=== PATIENT | female | born 1945 | race Caucasian/White ===

== ENCOUNTER 2017-04-12 02:18 | Inpatient (IN) | payer MEDICARE ==
[~2017-04-12] VITALS: Ht 170.2 cm; Wt 82.6 kg
[~2017-04-12 02:18] MED LIST: ALBU90AE INH; ALPR-475 PO; CETI10CA PO; CHOL500014 PO; DESO60CR12 TP; DICL100G8 TP; LEVO75TA PO; MELO-190 PO; MONT10TA6 PO; NITR0.4T SL; SUMA25TA4 PO; TIZA4TAB PO; TRAM50TA2 PO; TRIA10.8 NAS; VITA1CAP5 PO
[2017-04-12] MEDS ORDERED: SODIUM CHLORIDE 0.9% 1,000 ML IV ONE (02:24)
[2017-04-12] MEDS ORDERED: SODIUM CHLORIDE 0.9% 1,000ML IVBOLUS ONE (02:30)
[2017-04-12] MEDS ORDERED: SODIUM CHLORIDE FLUSH 10ML SYR IVF ONE (02:30)
[2017-04-12] MEDS ORDERED: CIPROFLOXACIN/PMX 400MG/200ML 200 ML IV ONE (02:30)
[2017-04-12] MEDS ORDERED: METOCLOPRAMIDE 5 MG/ML, 2ML IVPush ONE (03:00)
[2017-04-12] MEDS ORDERED: METOCLOPRAMIDE 5 MG/ML, 2ML ONE (03:26)
[2017-04-12] MEDS ORDERED: CIPROFLOXACIN/PMX 400MG/200ML 200 ML ONE (03:26)
[2017-04-12 03:33] LABS: BLOOD UREA NITROGEN 9 mg/dL (7-18)
[2017-04-12 03:34] LABS: HEMATOCRIT 37.5 % (34.6-47.8); HEMOGLOBIN 12.5 g/dL (11.7-16.4); WHITE BLOOD COUNT 5.5 x10^3/uL (3.4-10)
[2017-04-12] MEDS: CIPROFLOXACIN/PMX 400MG/200ML 200 ML IV SCH ×2 (04:30→15:59)
[2017-04-12] MEDS ORDERED: ZOLPIDEM 5MG TABLET PO PRN (04:30)
[2017-04-12] MEDS ORDERED: DOCUSATE 100 MG CAPSULE PO PRN (04:30)
[2017-04-12] MEDS ORDERED: SUMATRIPTAN 25 MG TABLET PO PRN (04:30)
[2017-04-12] MEDS ORDERED: BISACODYL 10 MG SUPP PR PRN (04:30)
[2017-04-12] MEDS ORDERED: POLYETHYLENE GLYCOL 17 GM PACKET PO PRN (04:30)
[2017-04-12] MEDS ORDERED: ACETAMINOPHEN 325 MG TABLET PO PRN (04:30)
[2017-04-12] MEDS: NS + 20MEQ KCL 1,000 ML IV SCH ×2 (06:41→14:30)
[2017-04-12] MEDS: LEVOTHYROXINE 75 MCG TABLET PO SCH (06:51)
[2017-04-12] MEDS: ENOXAPARIN 40 MG/0.4 ML SQ SCH (06:51)
[2017-04-12] MEDS ORDERED: NITROGLYCERIN 0.4 MG BOTTLE (25 TABS) SL PRN (09:00)
[2017-04-12] MEDS ORDERED: NITROGLYCERIN 0.4 MG BOTTLE (25 TABS) SL SCH (09:00)
[2017-04-12] MEDS: TRIAMCINOLONE ACETONIDE NAS SCH ×2 (09:00→21:00)
[2017-04-12] MEDS ORDERED: POTASSIUM CHLORIDE 20 MEQ TAB.ER.PRT PO ONE ×2 (10:00→15:00)
[2017-04-12] MEDS: METOCLOPRAMIDE 5 MG/ML, 2ML IVPush PRN ×2 (10:28→18:02)
[2017-04-12] MEDS ORDERED: ONDANSETRON 2MG/ML, 2ML IVPush PRN (10:30)
[2017-04-12] MEDS: MELOXICAM 15 MG TABLET PO SCH ×2 (10:52→21:48)
[2017-04-12 11:46] LABS: BLOOD UREA NITROGEN 9 mg/dL (7-18)
[2017-04-12 14:19] VITALS: BP 114/75
[2017-04-12 18:32] VITALS: BP 138/81
[2017-04-12] MEDS: MONTELUKAST 10 MG TABLET PO SCH (21:00)
[2017-04-12] MEDS: CHOLECALCIFEROL 1,000 UNIT TABLET PO SCH (21:48)
[2017-04-12] MEDS: TIZANIDINE 4MG TABLET PO PRN (22:41)
[2017-04-12] MEDS: CETIRIZINE 10 MG TABLET PO SCH (22:41)
[2017-04-13 03:06] VITALS: BP 92/55
[2017-04-13] MEDS: CIPROFLOXACIN/PMX 400MG/200ML 200 ML IV SCH ×2 (04:36→17:20)
[2017-04-13 05:33] LABS: HEMATOCRIT 32.6 % (34.6-47.8); HEMOGLOBIN 10.9 g/dL (11.7-16.4); WHITE BLOOD COUNT 4.2 x10^3/uL (3.4-10)
[2017-04-13 05:46] LABS: BLOOD UREA NITROGEN 9 mg/dL (7-18)
[2017-04-13 05:51] LABS: ASPARTATE AMINO TRANSFERASE 10 U/L (15-37)
[2017-04-13] MEDS: ENOXAPARIN 40 MG/0.4 ML SQ SCH (06:48)
[2017-04-13] MEDS: LEVOTHYROXINE 75 MCG TABLET PO SCH (06:48)
[2017-04-13 06:54] VITALS: BP 113/72
[2017-04-13] MEDS: TRIAMCINOLONE ACETONIDE NAS SCH ×2 (09:00→21:00)
[2017-04-13] MEDS: MELOXICAM 15 MG TABLET PO SCH ×2 (10:24→21:24)
[2017-04-13 13:33] VITALS: BP 123/77
[2017-04-13 19:34] VITALS: BP 119/73
[2017-04-13] MEDS: MONTELUKAST 10 MG TABLET PO SCH (21:24)
[2017-04-13] MEDS: CHOLECALCIFEROL 1,000 UNIT TABLET PO SCH (21:25)
[2017-04-13] MEDS: CETIRIZINE 10 MG TABLET PO SCH (21:26)
[2017-04-13] MEDS: TIZANIDINE 4MG TABLET PO PRN (23:02)
[2017-04-14 02:10] VITALS: BP 99/52
[2017-04-14] MEDS: CIPROFLOXACIN/PMX 400MG/200ML 200 ML IV SCH ×2 (04:48→15:52)
[2017-04-14] MEDS: ENOXAPARIN 40 MG/0.4 ML SQ SCH (06:33)
[2017-04-14] MEDS: LEVOTHYROXINE 75 MCG TABLET PO SCH (06:33)
[2017-04-14] MEDS: MELOXICAM 15 MG TABLET PO SCH ×2 (07:31→21:45)
[2017-04-14] MEDS: TRIAMCINOLONE ACETONIDE NAS SCH ×2 (07:32→21:00)
[2017-04-14 07:37] VITALS: BP 126/75
[2017-04-14 12:40] VITALS: BP 108/71
[2017-04-14] MEDS ORDERED: CIPR500T87 PO (12:40)
[2017-04-14] MEDS ORDERED: LACT1CAP24 PO (12:42)
[2017-04-14 18:28] VITALS: BP 154/84
[2017-04-14] MEDS: MONTELUKAST 10 MG TABLET PO SCH (21:45)
[2017-04-14] MEDS: CHOLECALCIFEROL 1,000 UNIT TABLET PO SCH (21:46)
[2017-04-14] MEDS: CETIRIZINE 10 MG TABLET PO SCH (21:47)
[2017-04-15 03:00] VITALS: BP 122/71
[2017-04-15] MEDS: CIPROFLOXACIN/PMX 400MG/200ML 200 ML IV SCH (04:16)
[2017-04-15] MEDS: LEVOTHYROXINE 75 MCG TABLET PO SCH (06:25)
[2017-04-15] MEDS: ENOXAPARIN 40 MG/0.4 ML SQ SCH (06:26)
[2017-04-15 06:41] VITALS: BP 129/72
[2017-04-15] MEDS: MELOXICAM 15 MG TABLET PO SCH (08:15)
[2017-04-15] MEDS: TRIAMCINOLONE ACETONIDE NAS SCH (08:15)
[2017-04-15 15:55] VITALS: BP 142/89
== END 2017-04-15 16:32 | disposition home or self-care (01) | DRG 871 ==
LOC: ED 02:31 → EDIP 03:20 → 4NOR 04:40
DX: A41.51 Sepsis due to Escherichia coli [E. coli] (principal); E43 Unspecified severe protein-calorie malnutrition; N10 Acute pyelonephritis; I20.1 Angina pectoris with documented spasm; E87.6 Hypokalemia; E03.9 Hypothyroidism, unspecified; E86.0 Dehydration; L53.9 Erythematous condition, unspecified; M19.90 Unspecified osteoarthritis, unspecified site; Z96.651 Presence of right artificial knee joint; N30.90 Cystitis, unspecified without hematuria; Z80.1 Family history of malignant neoplasm of trachea, bronchus and lung; Z90.49 Acquired absence of other specified parts of digestive tract; Z88.5 Allergy status to narcotic agent; Z88.0 Allergy status to penicillin; Z88.2 Allergy status to sulfonamides; Z88.7 Allergy status to serum and vaccine; Z88.8 Allergy status to other drugs, medicaments and biological substances; Z88.6 Allergy status to analgesic agent; Z88.1 Allergy status to other antibiotic agents; Z88.3 Allergy status to other anti-infective agents; Z91.041 Radiographic dye allergy status
CPT/HCPCS: 36415; 71010; 76770; 80048; 80053; 81001; 82040; 83605; 83690; 83735; 84145; 84484; 85025; 87040; 87077; 87086; 87186; 93005; 96365; 96366; 96375; J0744; J1650; J3480; J2765; J7030

== ENCOUNTER → 2017-05-28 | Outpatient (CLI) | payer MEDICARE ==
[~2017-05-28] MED LIST changes: -CHOL500014 PO; +CHOL500045 PO; +CIPR500T87 PO; +DICL100G19 TP; -DICL100G8 TP; +FENTANYL PF 100 MCG/2ML ONE; +FLUMAZENIL 0.1 MG/1 ML, 5ML ONE; +LACT1CAP24 PO; -MELO-190 PO; +MELO7.5T31 PO; +MIDAZOLAM 1 MG/ML, 5ML ONE; +NALOXONE 1 MG/ML, 2ML ONE
== END | disposition home or self-care (01) ==
LOC: RAD 11:56
PROVIDERS: ATTEND Pain Medicine Interventional Pain Medicine
DX: M51.36 Other intervertebral disc degeneration, lumbar region (principal); M51.26 Other intervertebral disc displacement, lumbar region; M43.17 Spondylolisthesis, lumbosacral region; M48.07 Spinal stenosis, lumbosacral region; M47.896 Other spondylosis, lumbar region; M25.78 Osteophyte, vertebrae
CPT/HCPCS: 72148; 99156; 99157; J2250; J3010; J2310

== ENCOUNTER → 2018-02-07 | Outpatient (CLI) | payer MEDICARE ==
[~2018-02-07] MED LIST changes: -FLUMAZENIL 0.1 MG/1 ML, 5ML ONE; -NALOXONE 1 MG/ML, 2ML ONE
== END | disposition home or self-care (01) ==
LOC: RAD 09:22
PROVIDERS: ATTEND Orthopaedic Surgery Sports Medicine
DX: M75.51 Bursitis of right shoulder (principal); M62.511 Muscle wasting and atrophy, not elsewhere classified, right shoulder; M19.011 Primary osteoarthritis, right shoulder; M25.551 Pain in right hip
CPT/HCPCS: 73221; 73721; 99156; 99157; J2250; J3010

== ENCOUNTER → 2018-04-24 | Outpatient (CLI) | payer MEDICARE ==
[~2018-04-24] MED LIST changes: +FLUMAZENIL 0.1 MG/1 ML, 5ML ONE; +NALOXONE 1 MG/ML, 2ML ONE
== END | disposition home or self-care (01) ==
LOC: RAD 07:24
PROVIDERS: ATTEND Neurological Surgery
DX: M51.36 Other intervertebral disc degeneration, lumbar region (principal); M48.061 Spinal stenosis, lumbar region without neurogenic claudication; M41.9 Scoliosis, unspecified
CPT/HCPCS: 72110; 72148; 99156; 99157; J2250; J3010; J2310

== ENCOUNTER → 2018-11-12 | Outpatient (CLI) | payer MEDICARE ==
[~2018-11-12] MED LIST changes: -FENTANYL PF 100 MCG/2ML ONE; -FLUMAZENIL 0.1 MG/1 ML, 5ML ONE; -MIDAZOLAM 1 MG/ML, 5ML ONE; -NALOXONE 1 MG/ML, 2ML ONE; +ROSU20TA PO
[2018-11-12 12:53] LABS: BASOPHILS # (AUTO) 0.03 x10^3/uL (0-0.1); BASOPHILS % (AUTO) 1 % (0-1); EOSINOPHILS # (AUTO) 0.21 x10^3/uL (0-0.4); EOSINOPHILS % (AUTO) 4 % (1-7); HCT (SEDRATE) 39.8 % (34.6-47.8); LYMPHOCYTES # (AUTO) 0.96 x10^3/uL (1-3.4); LYMPHOCYTES % (AUTO) 17 % (22-44); MD NO; MEAN CORPUSCULAR HEMOGLOBIN 28.6 pg (27.0-34.8); MEAN CORPUSCULAR HGB CONC 32.7 g/dL (32.4-35.8); MEAN CORPUSCULAR VOLUME 87.3 fL (80-100); MEAN PLATELET VOLUME 9.6 fL (7.4-10.4); MONOCYTES # (AUTO) 0.54 x10^3/uL (0.2-0.8); MONOCYTES % (AUTO) 9 % (2-9); NEUTROPHILS # (AUTO) 3.99 x10^3/uL (1.8-6.8); NEUTROPHILS % (AUTO) 70 % (42-75); PLATELET COUNT 256 x10^3/uL (130-400); RED BLOOD COUNT 4.63 x10^6/uL (3.82-5.3); RED CELL DISTRIBUTION WIDTH 13.9 % (9.6-15.2)
[2018-11-12 12:55] LABS: INTERNATIONAL NORMALIZED RATIO 0.95 (0.93-1.1)
[2018-11-12 13:13] LABS: ANION GAP 5 mmol/L (5-15); CALCIUM 9.1 mg/dL (8.5-10.1); CHLORIDE 108 mmol/L (98-107)
[2018-11-12 13:17] LABS: CHOL/HDL RATIO 1.9; CHOLESTEROL, TOTAL 177 mg/dL (140-239); CREATININE 1.08 mg/dL (0.55-1.02); HDL CHOL % 54 % (28-40); HDL CHOLESTEROL (DIRECT) 95 mg/dL (40-60); LDL CHOLESTEROL,CALCULATED 68 mg/dL (54-169); LDL/HDL RATIO 0.7 (0.5-3.0); TRIGLYCERIDES 71 mg/dL (50-200); VLDL CHOLESTEROL 14 mg/dL (0-25)
== END | disposition home or self-care (01) ==
LOC: CFH 11:49
PROVIDERS: ATTEND Internal Medicine
DX: M25.50 Pain in unspecified joint (principal); I10 Essential (primary) hypertension; E78.2 Mixed hyperlipidemia; I25.10 Atherosclerotic heart disease of native coronary artery without angina pectoris
CPT/HCPCS: 36415; 80048; 80061; 85025; 85610; 85651; 85730; 86200; 86430

== ENCOUNTER 2018-11-13 11:49 | Day surgery (SDC) | payer MEDICARE ==
[~2018-11-13 11:49] MED LIST changes: -ROSU20TA PO
[2018-11-13] MEDS ORDERED: MIDAZOLAM 1 MG/ML, 5ML ONE (13:57)
[2018-11-13] MEDS ORDERED: DIPHENHYDRAMINE 50 MG/ML, 1ML ONE (13:57)
[2018-11-13] MEDS ORDERED: LIDOCAINE 2%, 20ML ONE (13:57)
[2018-11-13] MEDS ORDERED: FENTANYL PF 100 MCG/2ML ONE (13:57)
[2018-11-13] MEDS ORDERED: VERAPAMIL 2.5 MG/ML, 2ML ONE (14:27)
[2018-11-13] MEDS ORDERED: HEPARIN 1,000 UNITS/ML, 10ML ONE (14:32)
[2018-11-13] MEDS ORDERED: SODIUM CHLORIDE 0.9% 1,000 ML IV SCH (14:54)
[2018-11-13] MEDS ORDERED: ROSU20TA PO (15:15)
[2018-11-13] MEDS ORDERED: PLEASE ENTER HEIGHT AND WEIGHT MC SCH (15:30)
== END 2018-11-13 18:25 | disposition home or self-care (01) ==
LOC: CACL 11:49
PROVIDERS: ATTEND Internal Medicine Cardiovascular Disease
DX: I25.118 Atherosclerotic heart disease of native coronary artery with other forms of angina pectoris (principal); I10 Essential (primary) hypertension; E78.2 Mixed hyperlipidemia; Z88.1 Allergy status to other antibiotic agents; Z88.8 Allergy status to other drugs, medicaments and biological substances; Z88.0 Allergy status to penicillin; Z91.030 Bee allergy status
CPT/HCPCS: 93454; 99156; C1769; C1894; J1200; J1644; J2250; J3010; J3490; Q9967

== ENCOUNTER → 2020-11-01 | Outpatient (CLI) | payer MEDICARE ==
[~2020-11-01] MED LIST changes: -ALPR-475 PO; +ALPR0.5T7 PO; -NITR0.4T SL; +NITR0.4T41 SL; +ROSU20TA2 PO; -TIZA4TAB PO; +TIZA4TAB2 PO
== END | disposition home or self-care (01) ==
LOC: CVU 12:41
PROVIDERS: ATTEND Internal Medicine Cardiovascular Disease
DX: I65.23 Occlusion and stenosis of bilateral carotid arteries (principal); I25.10 Atherosclerotic heart disease of native coronary artery without angina pectoris; E78.2 Mixed hyperlipidemia
CPT/HCPCS: 93880